=== PATIENT | female | born 1985 | race Caucasian/White ===

== ENCOUNTER 2020-05-24 08:28 | Outpatient (CLI) | payer OTHER, SELFPAY ==
--- NOTE | 2020-05-24 12:00 | NEURO_ITS ---
Impression: # Complains of numbness of hands. # Evolving right Carpal Tunnel Syndrome # No ulnar neuropathy. # Normal needle/EMG exam. # Clinical correlation recommended. Nerve Conduction Studies Anti Sensory Summary Table Stim Site NR Peak (ms) P-T Amp (?V) Site1 Site2 Delta-P (ms) Dist (cm) Azam (m/s) Left Median Anti Sensory (2-3nd Digit) Wrist 2.8 75.7 Wrist 2-3nd Digit 2.8 14.0 50 Wrist 2.8 78.4 Wrist 2-3nd Digit 2.8 14.0 50 Right Median Anti Sensory (2-3nd Digit) Wrist 3.0 62.0 Wrist 2-3nd Digit 3.0 14.0 47 Wrist 3.1 59.4 Wrist 2-3nd Digit 3.0 14.0 47 Left Radial Anti Sensory (Base 1st Digit) Wrist 1.8 24.1 Wrist Base 1st Digit 1.8 0.0 Right Radial Anti Sensory (Base 1st Digit) Wrist 1.8 30.9 Wrist Base 1st Digit 1.8 0.0 Left Ulnar Anti Sensory (5th Digit) Wrist 2.3 68.9 Wrist 5th Digit 2.3 14.0 61 Right Ulnar Anti Sensory (5th Digit) Wrist 2.3 58.8 Wrist 5th Digit 2.3 14.0 61 Motor Summary Table Stim Site NR Onset (ms) O-P Amp (mV) Site1 Site2 Delta-0 (ms) Dist (cm) Azam (m/s) Left Median Motor (Abd Poll Brev) Wrist 3.3 2.5 Elbow Wrist 4.1 24.0 59 Elbow 7.4 1.9 Right Median Motor (Abd Poll Brev) Wrist 3.4 2.2 Elbow Wrist 4.2 26.0 62 Elbow 7.6 2.2 Left Ulnar Motor (Abd Dig Minimi) Wrist 2.5 6.3 A Elbow Wrist 4.1 27.0 66 A Elbow 6.6 6.2 Right Ulnar Motor (Abd Dig Minimi) Wrist 2.3 7.3 A Elbow Wrist 4.5 28.0 62 A Elbow 6.8 6.3 F Wave Studies NR F-Lat (ms) L-R F-Lat (ms) Left Median (Mrkrs) (Abd Poll Brev) 25.23 0.22 Right Median (Mrkrs) (Abd Poll Brev) 25.45 0.22 Left Ulnar (Mrkrs) (Abd Dig Min) 24.29 0.94 Right Ulnar (Mrkrs) (Abd Dig Min) 25.23 0.94 EMG Side Muscle Nerve Root Ins Act Fibs Amp Dur Recrt Comment Right 1stDorInt Ulnar C8-T1 Nml Nml Nml Nml Nml Right Ext Indicis Radial (Post Int) C7-8 Nml Nml Nml Nml Nml Right Ext Digitorum Radial (Post Int) C7-8 Nml Nml Nml Nml Nml Right BrachioRad Radial C5-6 Nml Nml Nml Nml Nml Right PronatorTeres Median C6-7 Nml Nml Nml Nml Nml Right Abd Poll Brev Median C8-T1 Nml Nml Nml Nml Nml Left 1stDorInt Ulnar C8-T1 Nml Nml Nml Nml Nml Left Ext Indicis Radial (Post Int) C7-8 Nml Nml Nml Nml Nml Left Ext Digitorum Radial (Post Int) C7-8 Nml Nml Nml Nml Nml Left BrachioRad Radial C5-6 Nml Nml Nml Nml Nml Left PronatorTeres Median C6-7 Nml Nml Nml Nml Nml Left Abd Poll Brev Median C8-T1 Nml Nml Nml Nml Nml MTDD
== END 2020-05-24 08:29 | disposition home or self-care (01) ==
PROVIDERS: PCP Registered Nurse; Visit Provider Registered Nurse
DX: R20.0 Anesthesia of skin (principal); R20.2 Paresthesia of skin; M25.531 Pain in right wrist; G56.01 Carpal tunnel syndrome, right upper limb
CPT/HCPCS: 95886; 95911

== ENCOUNTER 2024-11-23 15:18 | Outpatient (CLI) | payer OTHER, SELFPAY ==
--- NOTE | ~2024-11-23 | MM_ITS ---
EXAMINATION: MM screening dianne BI w sushil HISTORY: Screening mammogram TECHNIQUE: Craniocaudal and mediolateral oblique 3-D tomosynthesis images were obtained and synthetic 2-D images were generated. CAD analysis was submitted and interpreted. COMPARISON: No prior mammogram is available for comparison at this institution. BREAST PARENCHYMAL COMPOSITION:Not Dense. There are scattered areas of fibroglandular density. FINDINGS: Possible 8mm mass seen at the posterior, lower right breast on MLO view. Not definitely see n on cc view. No definite parenchymal abnormality of the left breast seen. No suspicious parenchymal calcifications. IMPRESSION: Possible 8mm mass at the lower, posterior right breast, as above. Spot compression views and possibly ultrasound are recommended for further evaluation.. BI-RADS Category 0: Incomplete: Needs additional imaging evaluation. Reviewed, dictated and finalized at [facility]. IMPRESSION: Possible 8mm mass at the lower, posterior right breast, as above. Spot compress ion views and possibly ultrasound are recommended for further evaluation.. BI-RADS Category 0: Incomplete: Needs additional imaging evaluation.
== END 2024-11-23 15:19 | disposition home or self-care (01) ==
LOC: MICIMG 15:19
PROVIDERS: PCP Family Medicine; Visit Provider Obstetrics & Gynecology
DX: Z12.31 Encounter for screening mammogram for malignant neoplasm of breast (principal); R92.8 Other abnormal and inconclusive findings on diagnostic imaging of breast
CPT/HCPCS: 77063; 77067

== ENCOUNTER 2024-12-15 09:16 | Outpatient (CLI) | payer OTHER, SELFPAY ==
--- NOTE | ~2024-12-15 | MMUS_ITS ---
EXAMINATION: MM diagnostic dianne RT w sushil, US breast RT limited INDICATION: 39-year old female; BI-RADS 0, callback to evaluate Right breast asymmetry COMPARISON: 11/23/2024 TECHNIQUE: Digital breast tomosynthesis True lateral and spot compression CC views of the RIGHT breas t were obtained with computer-aided detection to assist in interpretation of the study. MAMMOGRAM FINDINGS: There are scattered areas of fibroglandular density. The asymmetry of concern in the far posterior, inferior right breast partially persists on spot compr ession views. Ultrasound was performed for further evaluation. RIGHT BREAST ULTRASOUND FINDINGS: Targeted evaluation of the area of concern was completed. No suspicious solid or cystic masses seen. IMPRESSION: Probable Benign RIGHT breast asymmetry with no sonographic correlate. Short-term follow-up recommende d. RECOMMENDATION: 3 month follow-up diagnostic RIGHT mammogram. BI-RADS 3, PROBABLY BENIGN Reviewed, dictated and finalized at [facility]. IMPRESSION: Probable Benign RIGHT breast asymmetry with no sonographic correlate. Short-ter m follow-up recommended. RECOMMENDATION: 3 month follow-up diagnostic RIGHT mammogram. BI-RADS 3, PROBABLY BENIGN
== END 2024-12-15 09:17 | disposition home or self-care (01) ==
LOC: MICIMG 09:16
PROVIDERS: PCP Family Medicine; Visit Provider Obstetrics & Gynecology
DX: R92.8 Other abnormal and inconclusive findings on diagnostic imaging of breast (principal)
CPT/HCPCS: 76642; 77061; 77065; G0279

== ENCOUNTER 2025-03-24 08:37 | Outpatient (CLI) | payer OTHER, SELFPAY ==
--- NOTE | ~2025-03-24 | MMUS_ITS ---
EXAMINATION: MM diagnostic dianne RT w sushil, US breast RT complete HISTORY: Follow-up right breast asymmetries TECHNIQUE: Additional 3-D tomosynthesis images of the right breast were performed and synthetic 2-D images were generated. CAD analysis was submitted and interpreted. High resolution complete right breast ultrasound was performed. COMPARISON: Comparison to multiple prior studies sequentially, with oldest reviewed study dated 11/23/2024. BREAST PARENCHYMAL COMPOSITION: Not dense: There are scattered areas of fibroglandular density. FINDINGS: MAMMOGRAPHIC FINDINGS: There are scattered fibroglandular densities without discrete mass or suspicious calcification. ULTRASOUND: Complete US of all 4 quadrants of the right breast/s and retroareolar region was reviewed. At 6:00 near the arterial lobe there is a 9 mm cyst. At 8:00 in the subareolar location there is a 4 mm cyst. No suspicious masses to suggest malignancy. IMPRESSION: 1. No evidence for malignancy in the right breast. Benign findings. 2. Routine yearly screening mammogram and regular clinical breast examination are recommended. BI-RADS Category 2: Benign finding(s). Reviewed, dictated and finalized at location [facility]. IMPRESSION: 1. No evidence for malignancy in the right breast. Benign findings. 2. Routine yearly screening mammogram and regular clinical breast examination a re recommended. BI-RADS Category 2: Benign finding(s).
== END 2025-03-24 08:38 | disposition home or self-care (01) ==
LOC: MICIMG 08:38
PROVIDERS: PCP Family Medicine; Visit Provider Obstetrics & Gynecology
DX: R92.8 Other abnormal and inconclusive findings on diagnostic imaging of breast (principal)
CPT/HCPCS: 76641; 77061; 77065; G0279